=== PATIENT | female | born 1985 | race Caucasian/White ===

== ENCOUNTER 2016-09-27 23:42 | Emergency (ER) | payer MEDICAID ==
[~2016-09-27] VITALS: Ht 167.6 cm; Wt 75.0 kg
[~2016-09-27 23:42] MED LIST: CIPR500T4 PO; HYDR-906 PO; IBUP-1542 PO; PHEN-538 PO
[2016-09-27 23:49] VITALS: Ht 167.6 cm; Wt 75.0 kg
--- NOTE | 2016-09-28 03:49 | ERD ---
ER Documentation Chief Complaint Date/Time DATE: 09/28/16 TIME: 03:48 Chief Complaint epigstric pain x 2 days, 16 wks , denies bleeding HPI 31-year-old female presents to emergency department for complaints of epigastric pain radiating to the generalized abdominal area for 2 days. Patient has history of gastritis, is currently taking ranitidine prescribed by her primary care doctor. Patient discussed the pain as sharp pain, 6/10 scale, radiates epigastric area to generalized abdominal area. Patient is approximately 16 weeks per patient, 3 para 2 0. Last menstruation 06/05/2016. Patient denies any vaginal bleeding. Patient denies any fever or chills. Patient denies any cramping. Patient denies any nausea vomiting. ROS All systems reviewed and are negative except as per history of present illness. Medications Home Meds Reported Medications Ranitidine Hcl (Ranitidine Hcl) 150 Mg Capsule, 150 MG PO BID, #60 CAP 09/28/16 Vit-Iron Fumarate-FA ( Vitamin Tablet) 1 Each Tablet, 1 TAB PO DAILY, TAB 09/28/16 Discontinued Reported Medications Ibuprofen* (Motrin*) Unknown Strength Tab, PO Q6H Y for PAIN AND OR ELEVATED TEMP, #30 TAB 04/30/16 Discontinued Scripts Famotidine* (Pepcid*) 20 Mg Tablet, 20 MG PO BID, #20 TAB Prov:MARGAUX REGALADO NP 09/28/16 Ibuprofen* (Motrin*) 600 Mg Tab, 600 MG PO Q6H Y for PAIN AND OR ELEVATED TEMP, #30 TAB Prov:MARGAUX REGALADO NP 04/30/16 Hydrocodone/Acetaminophen ([place] 5-325 Tablet) 1 Each Tablet, 1 TAB PO Q6H Y for PAIN, #20 TAB Prov:MARGAUX REGALADO NP 04/30/16 Phenazopyridine Hcl* (Pyridium*) 200 Mg Tab, 200 MG PO TID Y for URINARY PAIN, # 6 TAB Prov:MARGAUX REGALADO NP 04/30/16 Ciprofloxacin Hcl* (Ciprofloxacin Hcl*) 500 Mg Tablet, 500 MG PO BID for 10 Days , TAB Prov:MARGAUX REGALADO NP 04/30/16 Allergies Allergies: Coded Allergies: No Known Allergy (Verified , 09/28/16) PMhx/Soc Medical and Surgical Hx: pt denies Surgical Hx History of Surgery: No Anesthesia Reaction: No Hx Neurological Disorder: No Hx Respiratory Disorders: Yes (asthma) Hx Cardiac Disorders: No Hx Psychiatric Problems: No Hx Miscellaneous Medical Probl: Yes Hx Alcohol Use: Yes (at times) Hx Substance Use: No Hx Tobacco Use: No Smoking Status: Never smoker FmHx Family History: No coronary disease, No diabetes, No other Physical Exam Vitals Vital Signs Date Time Temp Pulse Resp B/P Pulse Ox O2 Delivery O2 Flow Rate FiO2 09/27/16 23:49 97.8 68 20 136/84 99 Physical Exam GENERAL: The patient is well developed and appropriate for usual state of health, in no apparent distress. CHEST: Clear to auscultation bilaterally. There are no rales, wheezes or rhonchi. HEART: Regular rate and rhythm. No murmurs, clicks, rubs or gallops. No S3 or S4. ABDOMEN: Soft, nontender and gravid abdomen. Good bowel sounds. No rebound or guarding. No gross peritonitis. No gross organomegaly or masses. No Carson sign or McBurney point tenderness. BACK: No midline or flank tenderness. EXTREMITIES: Equal pulses bilaterally. There is no peripheral clubbing, cyanosis or edema. No focal swelling or erythema. Full range of motion. Grossly neurovascularly intact. NEURO: Alert and oriented. Cranial nerves 2-12 intact. Motor strength in all 4 extremities with 5/5 strength. Sensation grossly intact. Normal speech and gait. SKIN: There is no apparent rash or petechia. The skin is warm and dry. HEMATOLOGIC AND LYMPHATIC: There is no evidence of excessive bruising or lymphedema. No gross cervical, axillary, or inguinal lymphadenopathy. Result Diagram: 09/28/16 0348 09/28/16 0348 Results 24 hrs Laboratory Tests Test 09/28/16 03:45 09/28/16 03:48 Urine Bacteria MODERATE Urine Bilirubin NEGATIVE Urine Clarity CLEAR Urine Color LT. YELLOW Urine Glucose NEGATIVE% Urine Hemoglobin NEGATIVE Urine Ketones NEGATIVE Urine Leukocyte Esterase TRACE Urine Microscopic RBC 0-2/HPF Urine Microscopic WBC 5-10/HPF Urine Mucus FEW Urine Nitrite NEGATIVE Urine Specific [place] 1.010 Urine Squamous Epithelial Cells MODERATE Urine Total Protein NEGATIVE Urine Urobilinogen 0.2 E.U./dL Urine pH 6.0 Alanine Aminotransferase (ALT/SGPT) 20IU/L Albumin 3.7g/dl Albumin/Globulin Ratio 1.05 Alkaline Phosphatase 86IU/L Anion Gap 17 Aspartate Amino Transf (AST/SGOT) 20IU/L Basophils # 0.010^3/ul Basophils % 0.2% Beta HCG, Quantitative 17142.0mIU/ml Blood Urea Nitrogen 7mg/dl Calcium Level 8.9mg/dl Carbon Dioxide Level 22mmol/L Chloride Level 105mmol/L Creatinine 0.56mg/dl Direct Bilirubin 0.00mg/dl Eosinophils # 0.010^3/ul Eosinophils % 0.2% Globulin 3.50g/dl Glucose Level 89mg/dl Hematocrit 33.6% Hemoglobin 11.5g/dl Indirect Bilirubin 0.1mg/dl Lipase 93U/L Lymphocytes # 2.010^3/ul Lymphocytes % 15.6% Mean Corpuscular Hemoglobin 31.1pg Mean Corpuscular Hemoglobin Concent 34.2g/dl Mean Corpuscular Volume 91.0fl Mean Platelet Volume 8.1fl Monocytes # 0.710^3/ul Monocytes % 5.5% Neutrophils # 10.010^3/ul Neutrophils % 78.5% Nucleated Red Blood Cells # 0.010^3/ul Nucleated Red Blood Cells % 0.0/100WBC Platelet Count 49779^3/UL Potassium Level 4.1mmol/L Red Blood Count 3.6910^6/ul Red Cell Distribution Width 13.3% Sodium Level 140mmol/L Total Bilirubin 0.1mg/dl Total Protein 7.2g/dl White Blood Count 12.810^3/ul PROCEDURE: ULTRASOUND LIMITED ABDOMEN CLINICAL INDICATION: 31-year-old female with abdominal pain. TECHNIQUE: Multiple sonographic of the right upper quadrant of the abdomen were obtained. The images were reviewed on a PACS workstation. COMPARISON: None. FINDINGS: The pancreas is not well visualized secondary to overlying bowel gas. The liver displays normal echogenicity. The liver measures 15.6 cm in length. No evidence of intrahepatic biliary ductal dilatation is seen. The portal and hepatic veins are unremarkable. The gallbladder demonstrates no wall thickening, sludge, nor stones. No pericholecystic fluid is seen. The common bile duct measures 3.2 mm and is not dilated. The right kidney displays normal echogenicity. The right kidney measures 9.7 cm in length. No caliectasis or hydronephrosis is seen. No free fluid is seen. IMPRESSION: Unremarkable right upper quadrant abdominal ultrasound. .Con Vera MD, Date Time Electronically viewed and signed by .Con Vera MD, on 09/28/2016 04:48 .M/ Based on last menstrual period, patient's 20 weeks , patient was transferred to labor and delivery for OB evaluation. She was transferred to OB triage by wheelchair, stable upon transfer. Procedures/MDM Medical Decision Making: She is epigastric pain nonspecific at this time, possibly from her gastritis. It can also from the growing . Liver function tests are normal, lipase is normal, no visualized got shattered stone or choledocholithiasis. Patient was transferred to labor and delivery for further evaluation and OB evaluation. There is low suspicion for abdominal emergencies at this time. Patients abdominal exam is normal at this time. Patients radiology exam does not show any abdominal emergencies at this time. There is low suspicion for appendicitis, cholecystitis, abdominal aortic aneurysms or peritonitis at this time. There is low suspicion for sepsis. Patient appears well and is hemodynamically stable. Disposition: Home. Condition: Stable Prescription Pepcid Instructions: Patient is advised to take medications as prescribed. Patient is advised to rest, increase fluid intake and do brat diet for next 1-2 days and progress as tolerated. Patient is advised that if symptoms are worse, severe abdominal pain, uncontrolled vomiting, high fever, severe flank pain, worst signs and symptoms, to return to the emergency department immediately. Otherwise, patient can follow up with OB doctor 2-3 days primary care doctor to 3 days. Departure Diagnosis: Primary Impression: Epigastric pain Condition: Stable Additional Instructions: Patient is advised to take medications as prescribed. Patient is advised to rest, increase fluid intake and do brat diet for next 1-2 days and progress as tolerated. Patient is advised that if symptoms are worse, severe abdominal pain , uncontrolled vomiting, high fever, severe flank pain, worst signs and symptoms , to return to the emergency department immediately. Otherwise, patient can follow up with OB doctor 2-3 days primary care doctor to 3 days. MARGAUX REGALADO NP Sep 28, 2016 03:49
[2016-09-28 04:10] LABS: BASOPHILS % 0.2 % (0.0-2.0); EOSINOPHILS % 0.2 % (0.0-7.0); HEMATOCRIT 33.6 % (37.0-47.0); HEMOGLOBIN 11.5 g/dl (12.0-16.0); LYMPHOCYTES % 15.6 % (15.0-51.0); MEAN CORPUSCULAR HEMOGLOBIN 31.1 pg (29.0-33.0); MEAN CORPUSCULAR HGB CONC 34.2 g/dl (32.0-37.0); MEAN PLATELET VOLUME 8.1 fl (7.4-10.4); MONOCYTE # 0.7 10^3/ul (0.3-0.9); MONOCYTES % 5.5 % (0.0-11.0); NEUTROPHILS % 78.5 % (39.0-77.0); PLATELET COUNT 290 10^3/UL (140-440); RED BLOOD COUNT 3.69 10^6/ul (4.20-5.40); RED CELL DISTRIBUTION WIDTH 13.3 % (11.5-14.5); UNCORRECTED WBC 12.8 10^3/ul (4.8-10.8); WHITE BLOOD COUNT 12.8 10^3/ul (4.8-10.8)
[2016-09-28 04:11] LABS: ADD UMIC YES; URINE BILIRUBIN (Dip) NEGATIVE (NEGATIVE); URINE BLOOD (Dip) NEGATIVE (NEGATIVE); URINE COLOR LT. YELLOW (YELLOW); URINE GLUCOSE (Dip) NEGATIVE (NEGATIVE); URINE KETONES (Dip) NEGATIVE (NEGATIVE); URINE LEUKOCYTE ESTERASE (Dip) TRACE (NEGATIVE); URINE NITRITE (Dip) NEGATIVE (NEGATIVE); URINE TOTAL PROTEIN (Dip) NEGATIVE (NEGATIVE); URINE UROBILINOGEN (Dip) 0.2 E.U./dL (0.1-1.0)
[2016-09-28 04:12] LABS: CONDITION 1
[2016-09-28 04:13] LABS: ALBUMIN 3.7 g/dl (3.3-4.9)
[2016-09-28 04:14] LABS: POTASSIUM 4.1 mmol/L (3.5-5.1)
[2016-09-28 04:15] LABS: CREATININE 0.56 mg/dl (0.44-1.00)
[2016-09-28 04:16] LABS: ALBUMIN/GLOBULIN RATIO 1.05; BILIRUBIN,INDIRECT 0.1 mg/dl (0-1.1); BILIRUBIN,TOTAL 0.1 mg/dl (0.2-1.3); TOTAL PROTEIN 7.2 g/dl (6.1-8.1)
[2016-09-28 04:17] LABS: CALCIUM 8.9 mg/dl (8.4-10.2)
[2016-09-28] MEDS ORDERED: FAMO-18 PO (04:21)
[2016-09-28 04:36] LABS: BACTERIA,URINE MODERATE; MUCUS,URINE FEW; SQUAMOUS EPITHELIAL CELL,UR MODERATE; URINE RBCS 0-2 /HPF (0)
--- NOTE | 2016-09-28 04:48 | RADRPT ---
PROCEDURE: ULTRASOUND LIMITED ABDOMEN CLINICAL INDICATION: 31-year-old female with abdominal pain. TECHNIQUE: Multiple sonographic of the right upper quadrant of the abdomen were obtained. The imag es were reviewed on a PACS workstation. COMPARISON: None. FINDINGS: The pancreas is not well visualized secondary to overlying bowel gas. The liver displays normal echogenicity. The liver measures 15.6 cm in length. No evidence of intrah epatic biliary ductal dilatation is seen. The portal and hepatic veins are unremarkable. The gallbladder demonstrates no wall thickening, sludge, nor stones. No pericholecystic fluid is see n. The common bile duct measures 3.2 mm and is not dilated. The right kidney displays normal echogenicity. The right kidney measures 9.7 cm in length. No caliec tasis or hydronephrosis is seen. No free fluid is seen. IMPRESSION: Unremarkable right upper quadrant abdominal ultrasound. .Con Vera MD, MD Date Time Electronically viewed and signed by .Con Vera MD, on 09/28/2016 04:48 .M/
[2016-09-28] MEDS ORDERED: PREN1TAB62 PO (04:57)
[2016-09-28] MEDS ORDERED: RANI150C11 PO (04:57)
== END 2016-09-28 04:30 | disposition home or self-care (01) ==
LOC: FTE 23:42
DX: O26.892 Other specified pregnancy related conditions, second trimester (principal); O99.512 Diseases of the respiratory system complicating pregnancy, second trimester; J45.909 Unspecified asthma, uncomplicated; R10.13 Epigastric pain; Z3A.20 20 weeks gestation of pregnancy
CPT/HCPCS: 36415; 76705; 80053; 81001; 81003; 83690; 84702; 85025; 86900; 86901

== ENCOUNTER 2016-09-28 04:35 | Outpatient (CLI) | payer MEDICAID ==
[~2016-09-28] VITALS: Ht 170.2 cm; Wt 74.3 kg
[2016-09-28 04:30] VITALS: Ht 170.2 cm; Wt 74.3 kg
[~2016-09-28 04:35] MED LIST changes: +FAMO-18 PO
[2016-09-28 04:44] VITALS: BP 110/52; PULSE 62; RESP 17
[2016-09-28] MEDS ORDERED: RANI150C11 PO (04:57)
[2016-09-28] MEDS ORDERED: PREN1TAB62 PO (04:57)
--- NOTE | 2016-09-28 05:51 | RADRPT ---
PROCEDURE: ULTRASOUND OBSTETRICAL CLINICAL INDICATION: 31-year-old female with pelvic pain for cervical length evaluation. TECHNIQUE: Multiple sonographic images of the pelvis were obtained. The images were reviewed on a PACS workstation. COMPARISON: No prior studies are available for comparison. FINDINGS: The cervix is closed with a length of 3.4 cm measured transvaginally. There is a single viable intra uterine gestation. Cardiac activity is present with 139 beats per minute. There is a vertex present ation. The placenta is anterior. There is no evidence for an abruption or placenta previa. IMPRESSION: 1. Single viable intrauterine gestation with vertex presentation. 2. The cervix appears closed with a length of 3.4 cm. .Con Vera MD, Date Time Electronically viewed and signed by .Con Vera MD, on 09/28/2016 05:51 .M/
--- NOTE | 2016-09-28 06:35 | QN ---
Documentation Comment 31years old female she 3 P2 with IUP at 20 weeks and 2 days presented with complaint of epigastric pain since last 2 days. She also reports some nausea. Patient reports history of gastritis in the past. Denies any hematemesis, right upper quadrant pain, fever chills or any other complaint. Patient currently takes Pepcid for gastritis. Had a known history of gastritis. Patient denies any contractions, leakage of fluid or vaginal bleeding. She feels movement. She had been seen in the emergency room and was clear that was sent to labor and delivery for OB evaluation. She denies any OB complaints. Please see ultrasound below PROCEDURE: ULTRASOUND OBSTETRICAL CLINICAL INDICATION: 31-year-old female with pelvic pain for cervical length evaluation. TECHNIQUE: Multiple sonographic images of the pelvis were obtained. The images were reviewed on a PACS workstation. COMPARISON: No prior studies are available for comparison. FINDINGS: The cervix is closed with a length of 3.4 cm measured transvaginally. There is a single viable intrauterine gestation. Cardiac activity is present with 139 beats per minute. There is a vertex presentation. The placenta is anterior. There is no evidence for an abruption or placenta previa. IMPRESSION: 1. Single viable intrauterine gestation with vertex presentation. 2. The cervix appears closed with a length of 3.4 cm. .Con Vera MD, Date Time Electronically viewed and signed by .Con Vera MD, on 09/28/2016 05:51 .M/ heart tone: In normal range Cervix long and closed. Abdomen: Soft, nontender, no rebound tenderness no guarding no rigidity. Fundus palpable at the level of umbilicus consistent with 20 weeks . Assessment IUP at 20 weeks and 2 days doing well. Epigastric pain with GERD symptoms consistent with gastritis. Plan: DC home. Continue taking greater than gastritis medication. Diet instruction was provided to the patient As a precaution was given next Follow-up with primary care physician in a couple of days discussed with the patient RT to triage for any other complaint or concern. Patient verbalized understanding. KYLAH ESTRELLA MD Sep 28, 2016 06:35
--- NOTE | 2016-09-28 06:39 | TRIAGE ---
OB Triage Datetime Report Generated by CPN: 09/28/2016 06:38 Datetime: 09/28/2016 06:26 Contraction Comments: TOCO REMOVED FOR D/C Datetime: 09/28/2016 06:15 Labor Evaluation Frequency: NONE NOTED Monitor Mode: External Resting Tone [place]: Relaxed Datetime: 09/28/2016 05:15 Labor Evaluation Frequency: NONE NOTED Monitor Mode: External Resting Tone [place]: Relaxed Datetime: 09/28/2016 05:00 Time of Arrival: 09/28/2016 04:28 EGA: 20.2 Arrived By: Ambulatory Arrived From: Emergency Dept Chief Complaint: EPIGASTRIC PAIN Movement: Absent Contractions: Denies/Absent Rupture of Membranes: Denies Vaginal Bleeding: None Vaginal Discharge: Denies Recent Sexual Intercouse: Denies Abdominal Trauma: Not Applicable Patient Complaints: Epigastric Pain Additional Patient Complaints: CLEARED AND D/C FROM ER WITH PRESCRIPTION FOR PEPCID FOR GASTRITIS Time Provider Notified: 09/28/2016 04:51 Provider Notified: DR. ESTRELLA Initial Plan: DOPPLER, TOCO Datetime: 09/28/2016 04:46 Heart Rate FHR Baseline Rate: RANGES FROM 137-150bpm Monitor Mode: Doppler Datetime: 09/28/2016 04:44 Stage of : OB Triage Assessment Type: Triage Maternal Assessment Level of Consciousness: Fully Conscious DTR's/Clonus: DTRs 2+; No Clonus Headache: Denies Blurred Vision: No Respiratory Effort: Unlabored; Regular Rhythm; Equal Expansion Breath Sounds, Left: Clear and Equal Breath Sounds, Right: Clear and Equal Nausea/Vomiting: Denies RUQ Epigastric Pain: Denies Lower Extremities Edema: None Degree: None Upper Extremities Edema: None Degree: None Facial Edema: None Temperature Route: Oral Fall Risk Assessment History of Falling: (0) No Secondary Diagnosis: (0) No Ambulatory Aid: (0) Bedrest/Nurse Assist IV Therapy: (0) No Gait: (0) Normal/Bedrest/Immobile Mental Status: (0) Oriented to Own Ability Fall Score: 0 Fall Risk Score Definition: No Risk: No action required Pain Assessment Pain Scale: 8 Pain Presence: Constant Pain Type: Ache Pain Location: Abdomen (Annotations: EPIGASTRIC PAIN) Pain Relief Measures: Comfort Measures Datetime: 09/28/2016 04:43 Monitor Mode: External Quality: Mild (Annotations: ABDOMEN SOFT ON PALPATION)
== END 2016-09-28 06:33 | disposition home or self-care (01) ==
LOC: OBT 04:35 → L-D 04:37 → OBT 06:33
PROVIDERS: ATTEND Obstetrics & Gynecology
DX: O99.612 Diseases of the digestive system complicating pregnancy, second trimester (principal); K29.70 Gastritis, unspecified, without bleeding; Z3A.20 20 weeks gestation of pregnancy
CPT/HCPCS: 76817; Z7500; G0463

== ENCOUNTER 2016-11-05 15:12 | Emergency (ER) | END 2016-11-06 07:24 | disposition home or self-care (01) | DX: O99.612 Diseases of the digestive system complicating pregnancy, second trimester (principal); K08.89 Other specified disorders of teeth and supporting structures; O99.512 Diseases of the respiratory system complicating pregnancy, second trimester; J45.909 Unspecified asthma, uncomplicated; Z3A.24 24 weeks gestation of pregnancy ==

== ENCOUNTER 2017-02-06 06:00 | Inpatient (IN) | payer MEDICAID ==
[~2017-02-06] VITALS: Ht 170.2 cm; Wt 85.1 kg
[~2017-02-06 06:00] MED LIST changes: +ACET500C5 PO; -CIPR500T4 PO; -FAMO-18 PO; -HYDR-906 PO; -IBUP-1542 PO; +ORA20G7 BUCCAL; -PHEN-538 PO; +PREN1TAB62 PO; +RANI150C11 PO
[2017-02-06 06:30] VITALS: Ht 170.2 cm; Wt 85.1 kg
[2017-02-06 06:31] VITALS: BP 109/71; PULSE 83
[2017-02-06] MEDS: LACTATED RINGER'S 1,000 ML IV SCH ×2 (06:47→13:40)
[2017-02-06] MEDS ORDERED: METHYLERGONOVINE 0.2 MG INJ IM PRN ×2 (07:00→19:00)
[2017-02-06] MEDS ORDERED: OXYTOCIN 30 UNITS/LR 500 ML IV SCH ×3 (07:00→08:00)
[2017-02-06] MEDS ORDERED: MISOPROSTOL 200 MCG TAB PR PRN ×2 (07:00→19:00)
[2017-02-06] MEDS ORDERED: CARBOPROST 250 MCG INJ IM PRN ×2 (07:00→19:00)
[2017-02-06] MEDS ORDERED: IBUPROFEN 600 MG TAB PO PRN (07:00)
[2017-02-06] MEDS ORDERED: BUTORPHANOL 2 MG INJ IV PRN (07:00)
[2017-02-06] MEDS ORDERED: LACTATED RINGER'S 1,000 ML IV PRN (07:00)
[2017-02-06] MEDS ORDERED: OXYTOCIN 30 UNITS/LR 500 ML IV PRN ×2 (07:00→19:00)
[2017-02-06] MEDS ORDERED: LIDOCAINE 1% (MPF) 30 ML INJ INJ PRN (07:00)
[2017-02-06 07:48] LABS: ADD SCAN DIFF NO
[2017-02-06 07:56] LABS: BASOPHILS % 0.3 % (0.0-2.0); EOSINOPHILS % 0.4 % (0.0-7.0); HEMATOCRIT 32.8 % (37.0-47.0); HEMOGLOBIN 11.3 g/dl (12.0-16.0); LYMPHOCYTES # 2.3 10^3/ul (0.8-2.9); LYMPHOCYTES % 23.6 % (15.0-51.0); MEAN CORPUSCULAR HEMOGLOBIN 30.9 pg (29.0-33.0); MEAN CORPUSCULAR HGB CONC 34.5 g/dl (32.0-37.0); MEAN CORPUSCULAR VOLUME 89.6 fl (82.0-101.0); MEAN PLATELET VOLUME 9.6 fl (7.4-10.4); MONOCYTE # 0.7 10^3/ul (0.3-0.9); NEUTROPHIL # 6.7 10^3/ul (1.6-7.5); NEUTROPHILS % 68.3 % (39.0-77.0); PLATELET COUNT 301 10^3/UL (140-415); RED BLOOD COUNT 3.66 10^6/ul (4.20-5.40); RED CELL DISTRIBUTION WIDTH 12.5 % (11.5-14.5); WHITE BLOOD COUNT 9.8 10^3/ul (4.8-10.8)
[2017-02-06 08:18] LABS: INR 0.92; PROTIME 12.4 Sec (12.2-14.2)
[2017-02-06 08:19] LABS: PARTIAL THROMBOPLASTIN TIME 26.5 Sec (25.0-35.0)
--- NOTE | 2017-02-06 12:49 | HP ---
Date/Time of Note Date/Time of Note DATE: 02/06/17 TIME: 12:47 OB - History Hx of Present Free Text/Dictation term preg in active, labor Care: Good Care Ultrasounds: Normal mid trimester US Obstetrical Complications: None Medical Complications: None Past Family/Social History * Past Medical, Surgical, Family and Obstetric Histories reviewed from chart. OB Admission Exam Vital Signs Vital Signs Vital Signs Date Time Temp Pulse Resp B/P Pulse Ox O2 Delivery O2 Flow Rate FiO2 02/06/17 06:31 97.6 83 109/71 Room Air Physical Exam HEENT: WNL Heart: Rhythm Normal Lungs: Clear, Equal Abdomen: WNL Extremities: Normal Reflexes: Normal Cervical Dilatation: 5cm Effacement: 50% Station: -1 Membranes: Intact Heart Rate: 120's Accelerations: Accelerations Present Decelerations: No Decelerations Varibility: Marked Last 72 hours Lab Results CBC & BMP 02/06/17 06:45 OB Assessment/Plan Plan: Expectant Management PARK MCDANIEL MD Feb 06, 2017 12:49
--- NOTE | 2017-02-06 15:52 | LDN ---
Date/Time of Note Date/Time of Note DATE: 02/06/17 TIME: 15:52 Delivery Summary NSD Placenta Delivered: Spontaneously Meconium: none Episiotomy: No Estimated blood loss: 350 Problems: PARK MCDANIEL MD Feb 06, 2017 15:52
[2017-02-06 18:00] VITALS: BP 118/61; PULSE 57
[2017-02-06] MEDS ORDERED: LACTATED RINGER'S 1,000 ML IV* SCH (18:35)
[2017-02-06] MEDS: OXYTOCIN 30 UNITS/LR 500 ML IV SCH ×2 (18:35→21:01)
[2017-02-06] MEDS ORDERED: SENNA/DOCUSATE NA (8.6MG/50MG) TAB PO PRN (19:00)
[2017-02-06] MEDS ORDERED: WITCH HAZEL/GLYCERIN PAD PR PRN (19:00)
[2017-02-06] MEDS ORDERED: MAGNESIUM HYDROXIDE 30ML CUP PO PRN (19:00)
[2017-02-06] MEDS ORDERED: ACETAMINOPHEN 325 MG TAB PO PRN (19:00)
[2017-02-06] MEDS ORDERED: ACETAMINOPHEN/CODEINE #3 TAB PO PRN (19:00)
[2017-02-06] MEDS ORDERED: ZOLPIDEM 5 MG TAB PO PRN (19:00)
[2017-02-06] MEDS ORDERED: LANOLIN 7 GM TUBE TOP PRN (19:00)
[2017-02-06] MEDS ORDERED: BENZOCAINE 20% 56 ML SPRAY TOP PRN (19:00)
[2017-02-06] MEDS ORDERED: DIPHENHYDRAMINE 25 MG CAP PO PRN (19:00)
[2017-02-06 20:00] VITALS: BP 119/62; PULSE 70; RESP 18
[2017-02-07] MEDS: IBUPROFEN 800 MG TAB PO SCH ×5 (00:04→23:41)
[2017-02-07 00:10] VITALS: BP 112/66; PULSE 69; RESP 18
[2017-02-07 03:45] VITALS: BP 108/56; PULSE 60; RESP 17
[2017-02-07 07:40] VITALS: BP 121/66; PULSE 59; RESP 18
[2017-02-07 07:40] LABS: ADD SCAN DIFF NO; BASOPHILS % 0.3 % (0.0-2.0); EOSINOPHILS # 0.1 10^3/ul (0.0-0.5); EOSINOPHILS % 0.6 % (0.0-7.0); HEMATOCRIT 31.3 % (37.0-47.0); HEMOGLOBIN 10.6 g/dl (12.0-16.0); LYMPHOCYTES # 2.1 10^3/ul (0.8-2.9); LYMPHOCYTES % 15.8 % (15.0-51.0); MEAN CORPUSCULAR HEMOGLOBIN 30.9 pg (29.0-33.0); MEAN CORPUSCULAR HGB CONC 33.9 g/dl (32.0-37.0); MEAN CORPUSCULAR VOLUME 91.3 fl (82.0-101.0); MEAN PLATELET VOLUME 9.4 fl (7.4-10.4); MONOCYTE # 0.8 10^3/ul (0.3-0.9); MONOCYTES % 5.6 % (0.0-11.0); NEUTROPHIL # 10.4 10^3/ul (1.6-7.5); NEUTROPHILS % 77.1 % (39.0-77.0); PLATELET COUNT 237 10^3/UL (140-415); RED BLOOD COUNT 3.43 10^6/ul (4.20-5.40); RED CELL DISTRIBUTION WIDTH 12.9 % (11.5-14.5); WHITE BLOOD COUNT 13.4 10^3/ul (4.8-10.8)
[2017-02-07 12:40] LABS: RUBELLA ANTIBODY - IGG 2.66 index
[2017-02-07 13:33] LABS: ADD UMIC YES; UR ASCORBIC ACID NEGATIVE (NEGATIVE); UR BILIRUBIN (Dip) NEGATIVE (NEGATIVE); UR BLOOD (Dip) 3+ mg/dL (NEGATIVE); UR CLARITY CLEAR (CLEAR); UR COLOR YELLOW (YELLOW); UR GLUCOSE (Dip) NEGATIVE (NEGATIVE); UR KETONES (Dip) NEGATIVE (NEGATIVE); UR LEUKOCYTE ESTERASE (Dip) 2+ Leu/ul (NEGATIVE); UR NITRITE (Dip) NEGATIVE (NEGATIVE); UR RBC 78 /HPF (0-5); UR SQUAMOUS EPITHELIAL CELL FEW /HPF (FEW); UR TOTAL PROTEIN (Dip) NEGATIVE (NEGATIVE); UR UROBILINOGEN (Dip) NEGATIVE (NEGATIVE)
--- NOTE | 2017-02-07 13:51 | PN ---
Date/Time of Note Date/Time of Note DATE: 02/07/17 TIME: 13:48 OB Subjective Subjective Subjective Breast-feeding, decreased vaginal bleeding. Urinated. Reports slight burning sensation with urination as well as suprapubic pain. Denies any fever or chills. Denies any depressive symptoms. OB Objective Objective Objective GA: Alert and oriented 4. Patient does not appear to be in any acute distress. Abdomen: Soft, fundal height below the umbilicus a 2 cm. No fundal tenderness, no CVA tenderness. Suprapubic tenderness noted Breast: No evidence of mastitis or breast engorgement. No erythema Extremities: No calf tenderness, no click no edema, negative Homans sign Hematology - 72 Hrs Test 02/06/17 06:45 02/07/17 07:27 White Blood Count 9.810^3/ul (4.8-10.8) # 13.410^3/ul (4.8-10.8) #H Red Blood Count 3.6610^6/ul (4.20-5.40) L 3.4310^6/ul (4.20-5.40) L Hemoglobin 11.3g/dl (12.0-16.0) L 10.6g/dl (12.0-16.0) L Hematocrit 32.8% (37.0-47.0) L 31.3% (37.0-47.0) L Mean Corpuscular Volume 89.6fl (82.0-101.0) 91.3fl (82.0-101.0) Mean Corpuscular Hemoglobin 30.9pg (29.0-33.0) 30.9pg (29.0-33.0) Mean Corpuscular Hemoglobin Concent 34.5g/dl (32.0-37.0) 33.9g/dl (32.0-37.0) Red Cell Distribution Width 12.5% (11.5-14.5) 12.9% (11.5-14.5) Platelet Count 52256^3/UL (140-415) 36933^3/UL (140-415) # Mean Platelet Volume 9.6fl (7.4-10.4) 9.4fl (7.4-10.4) Neutrophils % 68.3% (39.0-77.0) 77.1% (39.0-77.0) H Lymphocytes % 23.6% (15.0-51.0) 15.8% (15.0-51.0) Monocytes % 7.0% (0.0-11.0) 5.6% (0.0-11.0) Eosinophils % 0.4% (0.0-7.0) 0.6% (0.0-7.0) Basophils % 0.3% (0.0-2.0) 0.3% (0.0-2.0) Nucleated Red Blood Cells % 0.0/100WBC (0.0-0.0) 0.0/100WBC (0.0-0.0) Neutrophils # 6.710^3/ul (1.6-7.5) 10.410^3/ul (1.6-7.5) H Lymphocytes # 2.310^3/ul (0.8-2.9) 2.110^3/ul (0.8-2.9) Monocytes # 0.710^3/ul (0.3-0.9) 0.810^3/ul (0.3-0.9) Eosinophils # 0.010^3/ul (0.0-0.5) 0.110^3/ul (0.0-0.5) Basophils # 0.010^3/ul (0.0-0.1) 0.010^3/ul (0.0-0.1) Nucleated Red Blood Cells # 0.010^3/ul (0.0-0.0) 0.010^3/ul (0.0-0.0) OB Assessment/Plan Other Assessment: Status post at 38 weeks and 6 days Anemia, mild, post status Doing well Anaticipate DC home tomorrow KYLAH ESTRELLA MD Feb 07, 2017 13:51
[2017-02-07 15:24] VITALS: BP 98/57; PULSE 60; RESP 16
[2017-02-07 20:10] VITALS: BP 111/71; PULSE 68; RESP 20
[2017-02-08 03:50] VITALS: BP 102/55; PULSE 68; RESP 19
[2017-02-08] MEDS: IBUPROFEN 800 MG TAB PO SCH ×2 (05:36→11:26)
[2017-02-08 07:40] VITALS: BP 104/59; PULSE 55; RESP 16
[2017-02-08] MEDS ORDERED: VARICELLA VACCINE LIVE/PF 1,350 UNIT/0.5 ML ML SC* ONE (09:00)
[2017-02-08] MEDS ORDERED: MEASLES,MUMPS,RUBELLA VACCINE INJ SC* ONE (09:00)
[2017-02-08] MEDS ORDERED: DIPHTH/TET/ACEL PERTUSS (ADULT) 0.5 ML VIAL IM* ONE (09:00)
== END 2017-02-08 13:00 | disposition home or self-care (01) | DRG 775 ==
LOC: L-D 06:16 → PP1 17:53 → UNDODISIN 02-08 11:40
PROVIDERS: ADMIT Obstetrics & Gynecology; ATTEND Obstetrics & Gynecology
PROC: 10E0XZZ Delivery of Products of Conception, External Approach (ICD-10-PCS; principal; 2017-02-06 06:00)
DX: O80 Encounter for full-term uncomplicated delivery (principal); Z37.0 Single live birth; Z3A.38 38 weeks gestation of pregnancy
CPT/HCPCS: 81001; 85025; 85610; 85730; 86592; 86762; 86900; 86901; 87086; 87340; 90715; 90716; J0595; J2590; J7120